=== PATIENT | female | born 1975 | race Caucasian/White ===

== ENCOUNTER → 2017-11-02 09:23 | Outpatient (REF) | payer SELFPAY ==
[2017-11-02 13:44] LABS: Alanine Aminotransferase 29 U/L (12-78); Albumin Level 3.4 gm/dL (3.4-5.0); Albumin/Globulin Ratio 0.9 (1.1-1.8); Alkaline Phosphatase 98 U/L (46-116); Anion Gap 14.2 mEq/L (5-15); Aspartate Amino Transferase 16 U/L (15-37); Bilirubin,Total 0.2 mg/dL (0.2-1.0); Blood Urea Nitrogen 18 mg/dL (7-18); Calcium 8.7 mg/dL (8.5-10.1); Carbon Dioxide 26 mmol/L (21.0-32.0); Chloride 106 mmol/L (98-107); Creatinine,Serum 0.76 mg/dL (0.55-1.02); Estimated Glomerular Filt Rate 84 ml/min (>60); Free T4 (Free Thyroxine) 1.21 ng/dl (0.76-1.46); GFR (African American) 102 ML/MIN (>60); Glucose 78 mg/dL (74-106); Potassium 4.2 mmoL/L (3.5-5.1); Sodium 142 mmol/L (136-145); Thyroid Stimulating Hormone 0.61 uIU/ml (0.358-3.740); Total Protein,Serum 7.4 gm/dL (6.4-8.2)
[2017-11-02 13:52] LABS: Basophils % 0.7 % (0.1-2.0); Eosinophils # 0.1 K/mm3 (0.0-0.4); Eosinophils % 2.3 % (0.1-12.0); Hematocrit 39.3 % (37.0-47.0); Hemoglobin 14.1 g/dL (12.2-16.2); Lymphocytes # 2.7 K/mm3 (0.7-4.5); Lymphocytes % 48.6 K/mm3 (10-50); Mean Corpuscular HGB Conc 35.8 g/dL (31.8-35.4); Mean Corpuscular Hemoglobin 29.8 pg (27.0-31.2); Mean Platelet Volume 8.1 fl (7.4-10.4); Monocytes # 0.3 K/mm3 (0.1-1.0); Monocytes % 5.1 % (1.7-9.3); Neutrophils # 2.4 K/mm3 (1.8-7.8); Neutrophils % 43.3 % (37.0-80.0); Platelet Count 271 K/mm3 (142-424); Red Blood Count 4.74 M/mm3 (4.20-5.40); Red Cell Distribution Width 13.4 % (11.5-17.5); White Blood Count 5.6 K/mm3 (4.8-10.8)
== END ==
LOC: LAB 09:23
PROVIDERS: Visit Provider Emergency Medicine
DX: R53.83 Other fatigue (principal)
CPT/HCPCS: 80053; 84439; 84443; 85025

== ENCOUNTER → 2019-05-06 17:10 | Outpatient (CLI) | payer SELFPAY ==
[2019-05-06 18:51] LABS: Basophils % 0.8 % (0.1-2.0); Eosinophils # 0.2 K/mm3 (0.0-0.4); Eosinophils % 3.2 % (0.1-12.0); Hematocrit 50.9 % (37.0-47.0); Hemoglobin 16.6 g/dL (12.2-16.2); Lymphocytes # 2.1 K/mm3 (0.7-4.5); Mean Corpuscular HGB Conc 32.5 g/dL (31.8-35.4); Mean Corpuscular Hemoglobin 28.5 pg (27.0-31.2); Mean Corpuscular Volume 87.5 fl (81-99); Mean Platelet Volume 8.8 fl (7.4-10.4); Monocytes # 0.4 K/mm3 (0.1-1.0); Monocytes % 6.6 % (1.7-9.3); Neutrophils # 2.9 K/mm3 (1.8-7.8); Neutrophils % 51.4 % (37.0-80.0); Platelet Count 236 K/mm3 (142-424); Red Blood Count 5.82 M/mm3 (4.20-5.40); Red Cell Distribution Width 13.4 % (11.5-17.5); White Blood Count 5.5 K/mm3 (4.8-10.8)
[2019-05-06 19:10] LABS: Alanine Aminotransferase 34 U/L (12-78); Albumin Level 3.5 gm/dL (3.4-5.0); Albumin/Globulin Ratio 0.9 (1.1-1.8); Alkaline Phosphatase 77 U/L (46-116); Anion Gap 15.4 mEq/L (5-15); Aspartate Amino Transferase 26 U/L (15-37); Bilirubin,Total 0.3 mg/dL (0.2-1.0); Blood Urea Nitrogen 20 mg/dL (7-18); Calcium 8.9 mg/dL (8.5-10.1); Carbon Dioxide 25 mmol/L (21.0-32.0); Chloride 104 mmol/L (98-107); Chol/HDL Ratio 4.1 (1-3.5); Cholesterol 179 mg/dL (140-200); Creatinine,Serum 0.86 mg/dL (0.55-1.02); Estimated Glomerular Filt Rate 72 ml/min (>60); Free T4 (Free Thyroxine) 1.53 ng/dl (0.76-1.46); GFR (African American) 88 ML/MIN (>60); Globulin 3.8 gm/dl (1.3-3.2); Glucose 86 mg/dL (74-106); HDL Cholesterol 44 mg/dL (29-89); LDL Cholesterol 116 mg/dL (0-130); Potassium 4.4 mmoL/L (3.5-5.1); Sodium 140 mmol/L (136-145); Thyroid Stimulating Hormone 3.61 uIU/ml (0.358-3.740); Total Protein,Serum 7.3 gm/dL (6.4-8.2); Triglycerides 96 mg/dL (30-200); VLDL Cholesterol 19 mg/dL (0-40)
[2019-05-08 05:49] LABS: Hep A Ab, IgM Negative (Negative); Hepatitis B Core Antibody IgM Negative (Negative); Hepatitis B Surface Antigen Negative (Negative)
[2019-05-08 17:02] LABS: Hepatitis C Antibody >11.0 s/co ratio (0.0-0.9); Vitamin D 25 Hydroxy 36.6 ng/mL (30.0-100.0)
[2019-05-10 11:04] LABS: Estrogen 211 pg/mL (.)
[2019-05-13 20:07] LABS: Hepatitis C Genotype 1a (.)
== END ==
PROVIDERS: Visit Provider Emergency Medicine
DX: I10 Essential (primary) hypertension (principal); R53.83 Other fatigue; R76.8 Other specified abnormal immunological findings in serum; B17.10 Acute hepatitis C without hepatic coma
CPT/HCPCS: 80053; 80061; 80074; 82652; 82672; 84439; 84443; 85025; 87522

== ENCOUNTER → 2019-06-09 14:08 | Outpatient (CLI) | payer MEDICARE, SELFPAY ==
[2019-06-09 14:58] LABS: INR 1.04 (0.9-1.1); Prothrombin Time 10.8 seconds (9.4-11.8)
[2019-06-09 18:45] LABS: Thyroid Stimulating Hormone 0.35 uIU/mL (0.465-4.68)
[2019-06-09 19:16] LABS: Free T4 (Free Thyroxine) 1.35 ng/dl (0.78-2.19)
[2019-06-11 16:13] LABS: HIV Screen 4th Generation wRfx Non Reactive (Non Reactive)
== END ==
PROVIDERS: Visit Provider Emergency Medicine
DX: R94.6 Abnormal results of thyroid function studies (principal); B19.20 Unspecified viral hepatitis C without hepatic coma; Z21 Asymptomatic human immunodeficiency virus [HIV] infection status
CPT/HCPCS: 36415; 84439; 84443; 85610; 86703; G0432

== ENCOUNTER → 2020-05-07 12:29 | Outpatient (CLI) | payer MEDICARE, OTHER, SELFPAY | PROVIDERS: PCP Emergency Medicine; Visit Provider Emergency Medicine | DX: Z20.822 Contact with and (suspected) exposure to COVID-19 (principal) | CPT/HCPCS: U0003 ==

== ENCOUNTER 2024-07-16 20:19 | Emergency (ER) | payer MEDICARE, OTHER, SELFPAY ==
[2024-07-16 20:59] VITALS: BP 155/97; PULSE 110; RESP 24; O2SAT 100; BMI 28.3
--- NOTE | 2024-07-16 21:07 | XR_ITS ---
PROCEDURE INFORMATION: Exam: XR Chest Exam date and time: 07/16/2024 9:08 PM Age: 49 years old Clinical indication: Cough and wheezing; Additional info: Cough, wheezing TECHNIQUE: Imaging protocol: Radiologic exam of the chest. Views: 2 views. PA and Lateral COMPARISON: CR XR CHEST 2V 06/05/2019 7:10 PM FINDINGS: Tubes, catheters and devices: None. Lungs: Mild bilateral perihilar and basilar interstitial pulmonary opacities, suggesting infiltrates, pneumonia within the lungs. No consolidation. Linear density identified within bilateral lower lungs. The bilateral lung apices appear clear. Pleural spaces: No pleural effusion. No pneumothorax. Heart/Mediastinum: Mediastinum and aide appear unremarkable. Vasculature: Mild atherosclerotic calcification demonstrated within the aorta. Bones/joints: No acute bony abnormality identified. IMPRESSION: 1. Mild interstitial infiltrates, pneumonia. 2. Linear bilateral lower chest pulmonary atelectasis, or scarring.
--- NOTE | 2024-07-16 21:08 | ED_ITS ---
Discharge Plan Disposition Patient Disposition: Home, Self-Care Condition: Good Prescriptions Prescriptions: No Action ferrous sulfate 325 mg (65 mg iron) tablet See Rx Instructions .ROUTE .COMPLEX Qty: 30 0RF Dose Instruction: TAKE 1 TABLET BY MOUTH EVERY DAY FOR SUPPLEMENT Rx Instructions: TAKE 1 TABLET BY MOUTH EVERY DAY FOR SUPPLEMENT fnwhjwfgcutw-[id number] acid 18-400 mg-mcg tablet 1 tab PO QAM Qty: 30 0RF aripiprazole [Abilify] 2 mg tablet 2 mg PO DAILY Qty: 90 0RF bupropion HCl [Wellbutrin SR] 150 mg tablet sustained-release 12 hr 150 mg PO DAILY Qty: 90 0RF hydroxyzine HCl 25 mg tablet 25 mg PO Q6H PRN (Reason: nausea and vomiting) Qty: 120 2RF gabapentin 600 mg tablet 600 mg PO TID Qty: 90 2RF carvedilol 6.25 mg tablet 6.25 mg PO BID 90 Days Qty: 180 0RF oxybutynin chloride 5 mg tablet 5 mg PO BID 90 Days Qty: 180 0RF omeprazole magnesium 20 mg tablet,delayed release (DR/EC) 20 mg PO DAILY 90 Days Qty: 90 0RF trazodone 50 mg tablet 100 mg PO HS 90 Days Qty: 180 0RF cholecalciferol (vitamin D3) 25 mcg (1,000 unit) capsule 1,000 unit PO DAILY Qty: 90 0RF Referrals Follow up/Referrals: Provider,Referral, MD [Primary Care Provider] - See instructions Activity Restrictions/Add. Instructions Additional Instructions/Restrictions: Antibiotics as ordered Monitor temp. Tylenol or Motrin as needed for pain or fever Encourage fluids, water, Gatorade, Powerade, Pedialyte if infant/toddler/child Sleep elevated Humidifier/vaporizer Follow-up immediately for new or worsening symptoms or no noticeable improvement over the next 48-72 hours. 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 by RN): pt c/o coughin, wheezing, sinus pressure with some dizziness that started 2 days. ago and has gotten worse. Pt states she had a fever today. History of Present Illness HPI narrative: 49-year-old female presents for complaints of coughing, wheezing, fever, sinus pressure, and dizziness that started 2 days ago and has gotten worse Related Data Previous Rx's ?Medication ?Instructions ?Recorded ferrous sulfate 325 mg (65 mg See Rx Instructions .Route 06/15/20 iron) tablet .COMPLEX #30 tabs multivitamin-ferrous 1 tab PO QAM . #30 tabs 06/15/20 fumarate-folic acid 18 mg-400 mcg tablet carvedilol 6.25 mg tablet 6.25 mg PO BID 90 days #180 tabs 07/16/20 cholecalciferol (vitamin D3) 25 1,000 unit PO DAILY . #90 caps 07/16/20 mcg (1,000 unit) capsule omeprazole magnesium 20 mg 20 mg PO DAILY ppi 90 days #90 tabs 07/16/20 tablet,delayed release oxybutynin chloride 5 mg tablet 5 mg PO BID . 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) Smoking Status: Current every day smoker tobacco type: cigarettes packs per day: 1 alcohol intake: never substance use type: former substance user, heroin and methamphetamine current occupational status: disabled Travel in the last 8 weeks: None Have you lived/traveled outside [place] in past 30 days?: No Contact w/someone who lives/traveled outside US past 30 days?: No Exposure to someone with infectious disease in past 14 days?: No Do you have a fever (greater than 100.4 F or 38 C)?: No Have you tested positive for COVID-19: No Exposed to someone with COVID-19 in past 14 days?: No Do you have a sore throat?: No Do you have a cough?: No Do you have any weakness?: No Do you have any diarrhea?: No Are you experiencing any unusual bleeding?: No Do you have any muscle aches/pain?: No Do you have any abdominal pain?: No Are you experiencing loss of taste or smell?: No Other Medical History Have you received the Flu Vaccine for this season: No Have you received the Pneumonia Vaccine: No <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 Cohen ([facility]), 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 - Last Filed: 07/16/24 22:00> ROS Obtained: Yes Systems reviewed as appropriate & no additional complaints except as documented Constitutional Constitutional: Reports system reviewed and no additional complaints, except as documented, Reports as per HPI and Reports fever(s) ENT Ears, Nose, Mouth, and Throat: Reports system reviewed and no additional complaints, except as documented, Reports as per HPI, Reports nasal congestion, Reports nasal discharge, Reports sinus pain and Reports sinus pressure Respiratory Respiratory: Reports system reviewed and no additional complaints, except as documented, Reports as per HPI and Reports cough Physical Exam <[facility] 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 - Last 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: 07/16/24 22:00> General General appearance: alert and in no apparent distress ENT ENT exam: Present normal exam, normal oropharynx, mucous membranes moist and TM's normal bilaterally Respiratory Respiratory exam: Present normal lung sounds bilaterally Cardiovascular Cardiovascular exam: Present regular rate and normal rhythm Neurological Exam Neurological exam: Present alert and oriented X3 Skin Skin exam: Present warm and intact Medical Decision Making <[facility] 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 Screening: Per USPSTF and CDC recommendations, given the prevalence of disease in our region, it is our hospital?s policy to screen for HIV and viral Hepatitis for all patients aged 18 and over and those with ongoing risk factors. Lawson Inquiry Pt receiving controlled substance: No Lawson was queried for this patient: No Vital Signs: 07/16/24 20:59 07/16/24 21:45 07/16/24 22:10 Temperature 97.9 F Temperature Source Oral Pulse Rate 107 H 107 H Pulse Rate [Left] 110 H Respiratory Rate 24 13 20 Blood Pressure 147/97 H 144/96 H Blood Pressure [Right Arm] 155/97 H Blood Pressure Mean [Right Arm] 116 Blood Pressure Source Automatic Cuff Blood Pressure Position Supine 02 Sat by Pulse Oximetry 100 98 Oxygen Delivery Method Room Air Room Air Lab Data Lab results reviewed: Yes I reviewed the patient's lab results. Lab Results 07/16/24 20:55: SARS-CoV-2 (PCR) Not detected, Influenza A Untype (PCR) Not detected, Influenza Type B (PCR) Not detected Orders (Tests/Meds): ED MEDICATIONS Discontinued Medications Generic Name Dose Route Start Last Admin Trade Name Freq PRN Reason Stop Dose Admin Doxycycline Hyclate 100 mg 07/16/24 22:00 07/16/24 22:05 Doxycycline Hycl 100 Mg Tablet PO 07/26/24 21:59 100 mg Q12H MAEGAN Administration ORDERS Category Date Time Status Chest XR 2 view (NOT portable) [XR chest 2V] Stat Exams 07/16/24 21:07 Completed Rapid PCR Covid and Flu A/B Stat Lab 07/16/24 20:55 Completed Medical Decision Narrative: In summary patient is a 49-year-old female who presents to the emergency department for evaluation of nasal congestion, cough, sinus pressure, dizziness, fever, for 2 to 3 days. Patient is hemodynamically stable upon arrival, afebrile. Unremarkable physical exam. Differential diagnosis includes flu, COVID, upper respiratory infection. Initial workup will be conducted with COVID and flu swab and x-ray. Initial inventions include flu COVID swab and a chest x-ray. Initial workup reviewed by md chest x-ray pneumonia, flu and COVID are negative. Upon repeat evaluation patient's vital signs are stable sitting on bed resting comfortably. Given this patient appropriate for discharge at this time will discharge home with prescription of doxycycline and follow-up with PCP <Osiel Anderson MD - Last Filed: 07/17/24 00:23> Vital Signs: 07/16/24 20:59 07/16/24 21:45 07/16/24 22:10 Temperature 97.9 F Temperature Source Oral Pulse Rate 107 H 107 H Pulse Rate [Left] 110 H Respiratory Rate 24 13 20 Blood Pressure 147/97 H 144/96 H Blood Pressure [Right Arm] 155/97 H Blood Pressure Mean [Right Arm] 116 Blood Pressure Source Automatic Cuff Blood Pressure Position Supine 02 Sat by Pulse Oximetry 100 98 Oxygen Delivery Method Room Air Room Air Lab Data Lab Results 07/16/24 20:55: SARS-CoV-2 (PCR) Not detected, Influenza A Untype (PCR) Not detected, Influenza Type B (PCR) Not detected Orders (Tests/Meds): ED MEDICATIONS Discontinued Medications Generic Name Dose Route Start Last Admin Trade Name Freq PRN Reason Stop Dose Admin Doxycycline Hyclate 100 mg 07/16/24 22:00 07/16/24 22:05 Doxycycline Hycl 100 Mg Tablet PO 07/26/24 21:59 100 mg Q12H MAEGAN Administration ORDERS Category Date Time Status Chest XR 2 view (NOT portable) [XR chest 2V] Stat Exams 07/16/24 21:07 Completed Rapid PCR Covid and Flu A/B Stat Lab 07/16/24 20:55 Completed Medical Decision Narrative: In summary patient is a 49-year-old female who presents to the emergency department for evaluation of nasal congestion, cough, sinus pressure, dizziness, fever, for 2 to 3 days. Patient is hemodynamically stable upon arrival, afebrile. Unremarkable physical exam. Differential diagnosis includes flu, COV ID, upper respiratory infection. Initial workup will be conducted with COVID and flu swab and x-ray. Initial inventions include flu COVID swab and a chest x-ray. Initial workup reviewed by me chest x-ray pneumonia, flu and COVID are negative. Upon repeat evaluation patient's vital signs are stable sitting on bed resting comfortably. Given this patient appropriate for discharge at this time will discharge home with prescription of doxycycline and follow-up with PCP I independently interpreted patient's chest x-ray, appears to be interstitial pneumonia. I agree with above. I was consulted by the ANJELICA, and we discussed the complexity of the problems being addressed. I approved the treatment and management plan for this patient's care in the Emergency Department, thus performing a substantive portion of the medical decision making. 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
[2024-07-16 21:11] LABS: Coronavirus 19, PCR Not Detected (NotDetected); Influenza A, PCR Not Detected (NotDetected); Influenza B, PCR Not Detected (NotDetected)
[2024-07-16 21:45] VITALS: BP 147/97; PULSE 107; RESP 13; O2SAT 98
[2024-07-16] MEDS: DOXYCYCLINE HYCL 100 MG TABLET PO (22:05)
[2024-07-16 22:10] VITALS: BP 144/96; PULSE 107; RESP 20; TEMP 36.6; O2SAT 98
== END 2024-07-16 22:11 | disposition home or self-care (01) ==
PROVIDERS: Nurse Practitioner Family; Emergency Provider Emergency Medicine
DX: J18.9 Pneumonia, unspecified organism (principal); R50.9 Fever, unspecified; R42 Dizziness and giddiness; R09.81 Nasal congestion
CPT/HCPCS: 99283; 71046; 87636

== ENCOUNTER 2025-04-02 01:54 | Emergency (ER) | payer MEDICARE, OTHER, SELFPAY ==
[2025-04-02 01:55] VITALS: BP 140/96; PULSE 113; RESP 14; TEMP 37.1; O2SAT 98; BMI 26.6
[2025-04-02 03:03] LABS: Hematocrit 36.7 % (37.0-47.0); Hemoglobin 11.2 g/dL (12.2-16.2); Immature Granulocytes % 0.3 %; Mean Corpuscular HGB Conc 30.5 g/dL (31.8-35.4); Mean Corpuscular Hemoglobin 21.8 pg (27.0-31.2); Mean Corpuscular Volume 71.4 fl (81-99); Nucleated Red Blood Cells % 0 %; Platelet Count 317 K/mm3 (142-424); Red Blood Count 5.14 M/mm3 (4.20-5.40); Red Cell Distribution Width-SD 44.2 fL; White Blood Count 9.0 K/mm3 (4.8-10.8)
[2025-04-02] MEDS: DOXYCYCLINE HYCL 100 MG TABLET PO ×2 (03:06→03:08)
[2025-04-02] MEDS: IBUPROFEN 800 MG TABLET PO (03:06)
--- NOTE | 2025-04-02 03:12 | HMH.EDGENADL ---
Discharge Plan Disposition Patient Disposition: Home, Self-Care Condition: Good Prescriptions Prescriptions: New doxycycline hyclate 100 mg tablet 100 mg PO BID 9 Days Qty: 18 0RF No Action ferrous sulfate 325 mg (65 mg iron) tablet See Rx Instructions .ROUTE .COMPLEX Qty: 30 0RF Dose Instruction: TAKE 1 TABLET BY MOUTH EVERY DAY FOR SUPPLEMENT Rx Instructions: TAKE 1 TABLET BY MOUTH EVERY DAY FOR SUPPLEMENT wfmhpfeabzga-[id number]-[id number] acid 18-400 mg-mcg tablet 1 tab PO QAM Qty: 30 0RF aripiprazole [Abilify] 2 mg tablet 2 mg PO DAILY Qty: 90 0RF bupropion HCl [Wellbutrin SR] 150 mg tablet sustained-release 12 hr 150 mg PO DAILY Qty: 90 0RF hydroxyzine HCl 25 mg tablet 25 mg PO Q6H PRN (Reason: nausea and vomiting) Qty: 120 2RF gabapentin 600 mg tablet 600 mg PO TID Qty: 90 2RF carvedilol 6.25 mg tablet 6.25 mg PO BID 90 Days Qty: 180 0RF oxybutynin chloride 5 mg tablet 5 mg PO BID 90 Days Qty: 180 0RF omeprazole magnesium 20 mg tablet,delayed release (DR/EC) 20 mg PO DAILY 90 Days Qty: 90 0RF trazodone 50 mg tablet 100 mg PO HS 90 Days Qty: 180 0RF cholecalciferol (vitamin D3) 25 mcg (1,000 unit) capsule 1,000 unit PO DAILY Qty: 90 0RF doxycycline hyclate 100 mg capsule 100 mg PO BID 5 Days Qty: 10 0RF benzonatate 200 mg capsule 200 mg PO BID PRN (Reason: cough) Qty: 10 0RF Referrals Follow up/Referrals: Provider,Referral, MD [Primary Care Provider, Medical] - See instructions Activity Restrictions/Add. Instructions Additional Instructions/Restrictions: You were evaluated in the ER and are believed to be appropriate for discharge at this time. Keep the wound clean and dry. Shower/bathe like normal. Apply the provided bacitracin ointment to the wound twice daily. Take the prescribed doxycycline as directed, do not skip doses, do not stop taking it early. Take the doxycycline pill that you were provided tonight around 4 to 5 PM today, 04/02/2025. 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 As discussed, when you take the doxycycline drink a full glass of water after taking it. Stay sitting up for 30 minutes after taking this medication. Make an appointment with primary care doctor for reevaluation in 2 to 3 days. Return to the ER with new, worsening, or otherwise concerning symptoms. Clinical Impressions Clinical Impression: Abscess of scalp Instructions Patient Instructions: DI for Skin Abscess Print Language Print Language: Polish Discharge ED Provider: Matteo Milner General Adult HPI General Chief complaint: Skin/Abscess/Foreign Body Stated complaint: swelling in face Time Seen by Provider: 04/02/25 02:28 Mode of Arrival: Ambulatory Source of Information: Patient Description of Symptoms (Recalled from ER Triage Doc. by RN): Patient ambulatory to ED with complaints of bump on center of scalp that she thought was an ingrown hair initially, but she states that the area is becoming more irritated, warm to touch, and now the right side of her face is starting to swell with right eye closing shut. Patient denies pain or fevers at present. History of Present Illness HPI narrative: 49-year-old female presents to the ER complaining of a lump on the center of the scalp starting 1 week ago that has gotten larger and more painful. She states she is starting to have some associated swelling of the face. She denies fevers or chills, denies chest pain or difficulty breathing. She denies any headache, dizziness, numbness, tingling, or weakness. She reports no known wound to the area. Patient has a complex medical history including previous IV drug use but states the last time she used was before her episode of endocarditis in 2017. 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 She has no chest pain or difficulty breathing, no abdominal pain, nausea, vomiting, or diarrhea. She denies any other associated symptoms. She states she has not taken anything or applied anything to the wound. She states though she is starting to have a small amount of swelling of the face and upper eyelid on the right, it is not tender, she is able to see, she has no pain with extraocular movements of the eye. She has no other complaints or concerns. Related Data Previous Rx's ?Medication ?Instructions ?Recorded ferrous sulfate 325 mg (65 mg See Rx Instructions .Route 06/15/20 iron) tablet .COMPLEX #30 tabs multivitamin-ferrous 1 tab PO QAM . #30 tabs 06/15/20 fumarate-folic acid 18 mg-400 mcg tablet carvedilol 6.25 mg tablet 6.25 mg PO BID 90 days #180 tabs 07/16/20 cholecalciferol (vitamin D3) 25 1,000 unit PO DAILY . #90 caps 07/16/20 mcg (1,000 unit) capsule omeprazole magnesium 20 mg 20 mg PO DAILY ppi 90 days #90 tabs 07/16/20 tablet,delayed release oxybutynin chloride 5 mg tablet 5 mg PO BID . 90 days #180 tabs 07/16/20 trazodone 50 mg tablet 100 mg (2 x 50 mg) PO HS 90 days 07/16/20 #180 tabs aripiprazole 2 mg tablet (Abilify) 2 mg PO DAILY #90 tabs 08/17/20 bupropion HCl 150 mg tablet,12 hr 150 mg PO DAILY #90 ea 08/17/20 sustained-release (Wellbutrin SR) gabapentin 600 mg tablet 600 mg PO TID #90 tabs 08/17/20 hydroxyzine HCl 25 mg tablet 25 mg PO Q6H PRN nausea and 08/17/20 vomiting #120 tabs benzonatate 200 mg capsule 200 mg PO BID PRN cough #10 caps 07/17/24 doxycycline hyclate 100 mg capsule 100 mg PO BID 5 days #10 caps 07/17/24 doxycycline hyclate 100 mg tablet 100 mg PO BID 9 days #18 tabs 04/02/25 Allergies Allergy/AdvReac Type Severity Reaction Status Date / Time erythromycin base Allergy Mild Hives Verified 03/09/21 13:48 [facility] Disclaimer: The information contained in this section may have been updated after the patient was seen, as this information can be updated by other users. 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 , [employer]) Smoking Status: Current every day smoker tobacco type: cigarettes packs per day: 1 alcohol intake: never substance use type: former substance user, heroin and methamphetamine current occupational status: disabled Travel in the last 8 weeks?: None Have you lived/traveled outside [place] in past 30 days?: No Contact w/someone who lives/traveled outside [place] past 30 days?: No Exposure to someone with infectious disease in past 14 days?: No Do you have a fever (greater than 100.4 F or 38 C)?: No Have you tested positive for COVID-19?: No Exposed to someone with COVID-19 in past 14 days?: No Do you have a sore throat?: No Do you have a cough?: No Do you have any weakness?: No Do you have any diarrhea?: No Are you experiencing any unusual bleeding?: No Do you have any muscle aches/pain?: No Do you have any abdominal pain?: No Are you experiencing loss of taste or smell?: No Other Medical History Have you received the Flu Vaccine for this season: No Have you received the Pneumonia Vaccine: No ROS Obtained: Yes Systems reviewed as appropriate & no additional complaints except as documented Per HPI Physical Exam General General appearance: alert and in no apparent distress Head Head exam: atraumatic and other (2 cm diameter raised, red, fluctuant wound on the top of the scalp, tenderness and mild induration surrounding the wound. In total approximately 6 cm in diameter area of tenderness.) Expanded Head Exam Head image:  1. Raised, fluctuant, erythema patch with surrounding erythema and tenderness. The area of fluctuance is about 2 cm in diameter, the total tender area is approximately 6 cm in diameter 2. Dependent swelling with no redness or tenderness, no fluctuance 3. Dependent swelling with no redness, tenderness, or fluctuance Eye Eye exam: Present PERRL, EOMI (Painless EOMI, no proptosis) and periorbital swelling (Patient has mild right upper eyelid swelling. It is soft, nontender, not indurated. It appears to be dependent swelling related to the abscess on the scalp.) ENT ENT exam: Present mucous membranes moist Neck Neck exam: Present normal inspection and full ROM Chest Chest inspection: Present symmetric chest wall rise Respiratory Respiratory exam: Absent respiratory distress or stridor Cardiovascular Cardiovascular exam: Present normal rhythm and tachycardia (Very slight tachycardia which patient reports is normal for her and states she has not yet taken her carvedilol tonight) Abdominal Exam Abdominal exam: Present soft; Absent distention or tenderness Extremities Exam Extremities exam: Present full ROM Neurological Exam Neurological exam: Present alert and oriented X3; Absent motor sensory deficit Psychiatric Psychiatric exam: Present normal affect and normal mood Skin Skin exam: Present warm and dry Medical Decision Making Medical Records Medical records reviewed: Yes I reviewed the patient's medical records. Screening: Per USPSTF and CDC recommendations, given the prevalence of disease in our region, it is our hospital?s policy to screen for HIV and viral Hepatitis for all patients aged 18 and over and those with ongoing risk factors. Lawson Inquiry Pt receiving controlled substance: No Vital Signs: 04/02/25 01:55 Temperature 98.7 F Temperature Source Oral Pulse Rate [Right] 113 H Respiratory Rate 14 Blood Pressure [Right Arm] 140/96 H Blood Pressure Mean [Right Arm] 110 Blood Pressure Source [Right Arm] Automatic Cuff Blood Pressure Position [Right Arm] Sitting 02 Sat by Pulse Oximetry 98 Oxygen Delivery Method Room Air Lab Data Lab Results 04/02/25 02:50: WBC 9.0, RBC 5.14, Hgb 11.2 L, Hct 36.7 L, MCV 71.4 L, MCH 21.8 L, MCHC 30.5 L, RDW 17.1, Plt Count 317, MPV 9.9, Neut % (Auto) 64.0, Lymph % (Auto) 25.7, [place] % (Auto) 5.8, Eos % (Auto) 3.8, Baso % (Auto) 0.4, Neut # (Auto) 5.8, Lymph # (Auto) 2.3, [place] # (Auto) 0.5, Eos # (Auto) 0.3, Baso # (Auto) 0.0 04/02/25 02:50 Orders (Tests/Meds): ED MEDICATIONS Discontinued Medications Generic Name Dose Route Start Last Admin Trade Name Freq PRN Reason Stop Dose Admin Bacitracin 1 gm 04/02/25 03:02 Bacitracin Zinc Oint 30gm Tube TP 04/02/25 03:03 ONCE ONE Doxycycline Hyclate 100 mg 04/02/25 02:50 04/02/25 03:06 Doxycycline Hycl 100 Mg Tablet PO 04/02/25 02:51 100 mg ONCE ONE Administration Doxycycline Hyclate 100 mg 04/02/25 03:03 04/02/25 03:08 Doxycycline Hycl 100 Mg Tablet PO 04/02/25 03:04 100 mg ONCE ONE Administration Ibuprofen 800 mg 04/02/25 03:05 04/02/25 03:06 Ibuprofen 800 Mg Tablet PO 04/02/25 03:06 800 mg ONCE ONE Administration ORDERS Category Date Time Status POCUS Point of Care (ER Only) Stat Exams 04/02/25 02:33 Ordered CBC w/Auto Diff [Complete Blood Count Auto Diff] Stat Lab 04/02/25 02:50 Completed CMP [Comprehensive Metabolic Panel] Stat Lab 04/02/25 02:50 Received HIV Combo Stat Lab 04/02/25 02:50 Received Hepatitis C Ab Qual. W/ RFX Stat Lab 04/02/25 02:50 Received Blood Culture Stat Micro 04/02/25 02:54 Received Wound Culture and Gram Stain Stat Micro 04/02/25 02:53 Received Medical Decision Narrative: In summary, this 49-year-old female with comorbidities described in the HPI presents to the emergency department today with concerns of swollen painful bump on the scalp now having swelling of the face. On initial evaluation patient is mildly tachycardic with rate 103-108 during my exam which patient states is at her baseline and that she has not yet taken her carvedilol tonight, otherwise hemodynamically stable, afebrile, GCS 15, wound on scalp with surrounding tenderness, swelling, induration as described in the physical exam. There appears to be slight swelling of the forehead and right eyebrow but it appears to be dependent, it has no erythema, tenderness, induration, or heat associated with it. I do not appreciate evidence of periorbital cellulitis, definitely no evidence of orbital cellulitis.. Differential diagnosis includes but is not limited to abscess, foreign body, cellulitis. Based on these concerns, I ordered basic serum labs, blood cultures were collected because patient is mildly tachycardic and has a history of endocarditis 8 years ago though I do have lower suspicion for systemic infection at this time [id number] ultrasound personally performed and interpreted demonstrates abscess with surrounding cellulitis. Soft tissue ultrasound Indication: Soft tissue redness, swelling, tenderness, fluctuance Performed by: Matteo Milner MD Identified structures: Soft tissues of scalp Location: Top of scalp Findings: 1 cm abscess with surrounding cellulitis Impression: Abscess with cellulitis Images were saved saved to the permanent archive. The study was technically adequate. Soft tissue CPT codes Neck: 27154-50 Upper extremity: 65124-00 Axilla: 12469-39 Chest wall: 68837-91 Breast: 54964-46 (complete), 23433-84-[RT/LT] (limited) Upper back: 47042-10 Abdominal wall: 69084-17 Pelvic wall: 39621-14 Lower extremity: 14032-29 Other soft tissue: 58160-45 This study was performed by me, and I personally interpreted all images/videos. Based on my clinical judgment, these images were adequate and did not necessitate further imaging. After identifying the abscess, I consented the patient for incision and drainage and performed this procedure. See procedure note for details. No complications. Tolerated procedure well. Wound culture collected. Bacitracin applied to the wound. Doxycycline administered in the ER. 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 Patient was given instructions on symptomatic management, follow up instructions, wound care management, and return precautions for the emergency department. Patient indicated understanding and was discharged in stable condition. Procedures Risk/Benefits of Procedure(s) Were Explained: Yes Abscess I/D Site: scalp Technique: incised with #11 blade Amount of fluid expressed (mL): 1 Irrigation: Yes Packing used?: none Critical Care Critical Care Time Critical Care Time: No
[2025-04-02 03:13] VITALS: BP 116/81; PULSE 101; RESP 15; TEMP 36.8; O2SAT 96
[2025-04-02 03:19] LABS: Albumin Level 4.0 g/dl (3.5-5.0); Chloride 104 mmol/L (98-107); Sodium 136 mmol/L (136-145)
[2025-04-02 03:20] LABS: Potassium 3.8 mmoL/L (3.5-5.1)
[2025-04-02] MEDS: BACITRACIN ZINC OINT 30GM TUBE TP (03:21)
[2025-04-02 03:22] LABS: Alanine Aminotransferase 54 U/L (12-78); Albumin/Globulin Ratio 1.2 (1.1-1.8); Alkaline Phosphatase 79 U/L (38-126); Anion Gap 10.8 mEq/L (5-15); Aspartate Amino Transferase 58 U/L (14-36); Bilirubin,Total 0.4 mg/dl (0.2-1.3); Blood Urea Nitrogen 16 mg/dl (7-17); Carbon Dioxide 25 mmol/L (22.0-30.0); Creatinine Clearance Estimated 133 mL/min (50-200); Creatinine,Serum 0.60 mg/dl (0.52-1.04); Estimated Glomerular Filt Rate 107 ml/min (>60); GFR (African American) 130 ML/MIN (>60); Globulin 3.3 g/dL (1.3-3.2); Total Protein,Serum 7.3 g/dl (6.3-8.2)
[2025-04-02 03:23] LABS: Calcium 8.8 mg/dl (8.4-10.2); Glucose 98 mg/dl (74-100)
[2025-04-02 04:11] LABS: Hepatitis C Ab Qual. W/ RFX REACTIVE (Negative)
--- NOTE | 2025-04-03 11:08 | PC.NURSE ---
Consulted Dr. Bejarano on pt positive abscess culture with gram positive cocci. confirmed the pt was discharged with the appropriate antibiotic
--- NOTE | 2025-04-04 08:24 | PC.NURSE ---
Final wound culture reviewed by Dr. Cohen. Patient discharged on appropriate antibiotics. No new orders received.
== END 2025-04-02 03:28 | disposition home or self-care (01) ==
PROVIDERS: Emergency Provider Emergency Medicine
DX: L02.811 Cutaneous abscess of head [any part, except face] (principal); R00.0 Tachycardia, unspecified; L03.811 Cellulitis of head [any part, except face]; R22.0 Localized swelling, mass and lump, head; F17.210 Nicotine dependence, cigarettes, uncomplicated; B95.7 Other staphylococcus as the cause of diseases classified elsewhere
CPT/HCPCS: 10060; 80053; 85025; 86803; 87040; 87070; 87077; 87186; 87205; 87389; 87522; 99283; 99284